=== PATIENT | female | born 1950 | race Caucasian/White ===

== ENCOUNTER 2016-11-08 07:22 | Day surgery (SDC) | payer OTHER ==
[2016-11-08] MEDS ORDERED: LIDOCAINE HCL 1% MPF SOL ONE ×2 (07:35→08:07)
[2016-11-08] MEDS ORDERED: BUPIVACAINE/EPI 0.25% 50 ML SOL ONE (07:35)
[2016-11-08] MEDS ORDERED: HEPARIN SODIUM 100 U/ML SOL IV ONE ×2 (07:35→09:39)
[2016-11-08 07:49] LABS: BASOPHILS % (AUTO) 1 % (0-3); EOSINOPHILS % (AUTO) 2 % (0-9); HEMATOCRIT 43 % (35-47); MEAN CORPUSCULAR HGB CONC 33.5 gm/dl (32.0-36.0); MEAN CORPUSCULAR VOLUME 88 fL (81-99); MONOCYTES % (AUTO) 7.1 % (0-12)
[2016-11-08] MEDS ORDERED: PROPOFOL 500 MG/50 ML EMU IV ONE (08:06)
[2016-11-08] MEDS ORDERED: FENTANYL 100MCG/2ML SOL ONE (08:06)
[2016-11-08 08:10] LABS: ALBUMIN 3.6 gm/dl (3.4-5.0); CALCIUM 8.7 mg/dl (8.5-10.1); POTASSIUM 3.5 mMol/L (3.5-5.1)
[2016-11-08] MEDS ORDERED: CEFAZOLIN SODIUM 1 GM PDS ONE (08:32)
[2016-11-08] MEDS ORDERED: SODIUM CHLORIDE 20 ML 40 ML ONE ×2 (09:31→09:35)
[2016-11-08] MEDS ORDERED: PROPOFOL 10 MG/ML EMU IV ONE (09:56)
[2016-11-08 10:51] VITALS: RESP 20; TEMP 97.9
[2016-11-08 11:09] VITALS: BP 115/62; PULSE 57; O2SAT 93
== END 2016-11-08 12:15 | disposition home or self-care (01) | DRG 544 ==
LOC: SURG 07:22
PROVIDERS: ATTEND Surgery
DX: C49.9 Malignant neoplasm of connective and soft tissue, unspecified (principal)
CPT/HCPCS: 36415; 71010; 80053; 85025; J0690; J1644; J3010; A6402; J2001; J2704

== ENCOUNTER 2018-04-15 16:54 | Emergency (ER) | payer MEDICARE, BC ==
[2018-04-15] MEDS ORDERED: SOLUMEDROL 125 MG/2 ML 125 MG/2 ML PDS ONE (16:58)
[2018-04-15] MEDS ORDERED: EPINEPHRINE 1:1000 AMP 1 MG/ML SOL ONE ×2 (16:58→17:42)
[2018-04-15] MEDS ORDERED: DIPHENHYDRAMINE 50 MG/ML SOL ONE (16:58)
[2018-04-15] MEDS ORDERED: ALBUTEROL NEB SOL 2.5MG/3ML 1 VIAL SOL ONE ×2 (17:01→18:06)
[2018-04-15] MEDS ORDERED: SOLUMEDROL 125 MG/2 ML 125 MG/2 ML PDS IV ONE (17:02)
[2018-04-15] MEDS ORDERED: ALBUTEROL NEB SOL 2.5MG/3ML 1 VIAL SOL NEB ONE ×2 (17:02→18:06)
[2018-04-15] MEDS ORDERED: DIPHENHYDRAMINE 50 MG/ML SOL IV ONE (17:03)
[2018-04-15] MEDS ORDERED: RANITIDINE HYDROCHLORIDE 25 MG/ML SOL IV ONE (17:03)
[2018-04-15] MEDS: SODIUM CHLORIDE 0.9% 1000ML 1,000 ML IV SCH ×3 (17:05→19:15)
[2018-04-15] MEDS ORDERED: RANITIDINE HYDROCHLORIDE 25 MG/ML SOL ONE (17:10)
[2018-04-15 17:20] LABS: BASOPHILS % (AUTO) 1 % (0-3); EOSINOPHILS % (AUTO) 1 % (0-9); HEMATOCRIT 35 % (35-47); HEMOGLOBIN 11.3 gm/dl (12.0-15.5); LYMPHOCYTES % (AUTO) 20.2 % (10-50); MEAN CORPUSCULAR HEMOGLOBIN 30.7 pg (27.0-32.0); MEAN CORPUSCULAR VOLUME 96 fL (81-99); MONOCYTES % (AUTO) 8.3 % (0-12); NEUTROPHILS % (AUTO) 69.6 % (37-80)
[2018-04-15 17:29] LABS: CALCIUM 6.9 mg/dl (8.5-10.1); CARBON DIOXIDE 23.4 mEq/L (21-32); CREATININE 1.56 mg/dl (0.60-1.00); POTASSIUM 3.8 mMol/L (3.5-5.1)
[2018-04-15] MEDS ORDERED: FUROSEMIDE 40 MG SOL IV ONE ×2 (17:31→18:28)
[2018-04-15] MEDS ORDERED: FUROSEMIDE 40 MG SOL ONE ×2 (17:32→18:29)
[2018-04-15] MEDS ORDERED: EPINEPHRINE 1:1000 AMP 1 MG/ML SOL IM ONE (17:40)
[2018-04-15 18:44] VITALS: TEMP 97.5
[2018-04-15 19:25] VITALS: O2SAT 91
[2018-04-15 21:54] VITALS: BP 137/88; PULSE 81; RESP 20
== END 2018-04-15 21:23 | disposition home or self-care (01) | DRG 916 ==
LOC: ED 16:54
DX: T78.3XXA Angioneurotic edema, initial encounter (principal); K14.9 Disease of tongue, unspecified; R06.02 Shortness of breath
CPT/HCPCS: 36415; 71045; 80048; 83880; 84484; 85025; 93005; 96365; 96372; 96374; 96375; 99284; 99285; J1200; J1940; J2780; J2930; J7613

== ENCOUNTER 2018-08-13 03:25 | Emergency (ER) | payer OTHER ==
[2018-08-13] MEDS ORDERED: ALBUTEROL/IPRATROPIUM 1 VIAL SOL INH ONE (03:49)
[2018-08-13] MEDS ORDERED: ALBUTEROL/IPRATROPIUM 1 VIAL SOL ONE (03:50)
[2018-08-13 04:15] LABS: BASOPHILS % (AUTO) 0 % (0-3); EOSINOPHILS % (AUTO) 0 % (0-9); HEMATOCRIT 28 % (35-47); HEMOGLOBIN 8.8 gm/dl (12.0-15.5); LYMPHOCYTES % (AUTO) 8.5 % (10-50); MEAN CORPUSCULAR HEMOGLOBIN 26.7 pg (27.0-32.0); MEAN CORPUSCULAR HGB CONC 31.6 gm/dl (32.0-36.0); MEAN CORPUSCULAR VOLUME 84 fL (81-99); MONOCYTES % (AUTO) 8.8 % (0-12); NEUTROPHILS % (AUTO) 82.3 % (37-80)
[2018-08-13] MEDS ORDERED: HEPARIN 500 Unit PRE-FILL 100 U/ML SOL IV PRN (04:26)
[2018-08-13 04:33] LABS: ALBUMIN 2.3 gm/dl (3.4-5.0); ALKALINE PHOSPHATASE 80 IU/L (46-116); ALT 19 IU/L (14-63); AST 31 IU/L (15-37); BILIRUBIN,TOTAL 0.5 mg/dl (0.2-1.0); BLOOD UREA NITROGEN 17 mg/dl (7-18); CARBON DIOXIDE 31.6 mEq/L (21-32); CHLORIDE 89 mMol/L (98-107); CREATININE 1.37 mg/dl (0.60-1.00); GLUCOSE 100 mg/dl (74-106); MAGNESIUM 2.1 mg/dl (1.8-2.4); SODIUM 127 mMol/L (136-145); TOTAL PROTEIN 6.5 gm/dl (6.4-8.2); TROP I < 0.017 ng/ml (0.000-0.056)
[2018-08-13] MEDS ORDERED: MORPHINE SULFATE 10 MG/ML SOL IV PRN (05:00)
[2018-08-13] MEDS ORDERED: MORPHINE SULFATE 10 MG/ML SOL ONE (05:02)
[2018-08-13] MEDS: SODIUM CHLORIDE 0.9% FLUSH 10 ML SOL IV PRN ×2 (05:11→06:09)
[2018-08-13] MEDS ORDERED: HEPARIN SODIUM 100 U/ML SOL IV ONE (05:45)
[2018-08-13 06:11] VITALS: BP 144/71; PULSE 93; RESP 18; TEMP 98.5; O2SAT 94
== END 2018-08-13 06:05 | disposition home or self-care (01) | DRG 192 ==
LOC: ED 03:25
DX: J44.1 Chronic obstructive pulmonary disease with (acute) exacerbation (principal); R06.02 Shortness of breath; R09.02 Hypoxemia
CPT/HCPCS: 36591; 71045; 80053; 83735; 83880; 84100; 84484; 85025; 85378; 93005; 96374; 99284; 99285; J1644; J2270